=== PATIENT | female | born 1990 | race American Indian/Alaskan Native ===

== ENCOUNTER 2018-04-25 23:07 | Emergency (ER) | payer MEDICAID ==
[2018-04-25 23:12] VITALS: O2SAT 98
--- NOTE | 2018-04-25 23:25 | C.PDOC ---
History Of Present Illness 27 year old female who reports she is 18 weeks complains of pain to her right side of abdomen and buttocks after she fell down 5 steps. Patient states she walking down concrete steps that were wet and fell. She was able to get up but has pain to her tailbone and buttocks after falling. She also reports feeling pain to her right groin and abdomen after the fall. She came straight to ED for evaluation. (Leona Solitario) - HPI History Per: Patient History/Exam Limitations: no limitations Onset/Duration Of Symptoms: Hrs Location Of Injury: Right: Abdomen, Buttock (pian radiates to tailbone) - Fall Fall:Prior To Injury: Slipped - HPI Time Seen by Provider: 04/25/18 23:14 Chief Complaint (Nursing): Trauma Past Medical History Reviewed: Historical Data, Nursing Documentation, Vital Signs Other Surgeries: ectopic Family History: States: No Known Family Hx - Social History Hx Tobacco Use: No Hx Alcohol Use: No Hx Substance Use: No - Immunization History Hx Tetanus Toxoid Vaccination: No Hx Influenza Vaccination: No Hx Pneumococcal Vaccination: No Vital Signs: Last Vital Signs Temp 98.6 F 04/26/18 02:37 Pulse 90 04/26/18 02:37 Resp 20 04/26/18 02:37 BP 122/72 04/26/18 02:37 Pulse Ox 98 04/26/18 04:58 Review Of Systems Except As Marked, All Systems Reviewed And Found Negative. Gastrointestinal: Positive for: Abdominal Pain, Other (right groin pain) Musculoskeletal: Positive for: Other (tailbone pain) Neurological: Negative for: Weakness, Numbness, Incoordination Physical Exam - Physical Exam Appears: Well, Non-toxic, No Acute Distress Skin: Warm, Dry, No Rash Head: Atraumatic, Normacephalic Eye(s): bilateral: Normal Inspection Oral Mucosa: Moist Neck: Normal ROM Chest: Symmetrical Cardiovascular: Rhythm Regular, No Murmur Respiratory: Normal Breath Sounds, No Rales, No Rhonchi, No Wheezing Gastrointestinal/Abdominal: Bowel Sounds, Soft, Tenderness (mild subrapubic tenderness), No Guarding, Other Back: Other (tenderness to sacrum and coccyx, no swelling or ecchymosis) Extremity: Bilateral: Atraumatic, Normal Color And Temperature, Normal ROM Neurological/Psych: Oriented x3, Normal Speech Gait: Steady ED Course And Treatment O2 Sat by Pulse Oximetry: 98 (RA) Pulse Ox Interpretation: Normal - CT Scan/US US Other Rad Studies (CT/US): Read By Radiologist, Radiology Report Reviewed CT/US Interpretation: Name: SHARON SOLARES Age: 27Years F Date: 04/25/2018. Requesting Physician: AltafLeona : 1990. [employer] Procedure Ordered As Accession Number of. Images. US LTD ONE OR MORE. FETUSES. US OB . LIMITED. [id number]. J. 62. Provided Clinical History: patient with fall and injury, now has bradley. CONFIDENTIALITY STATEMENT. This report is intended only for the use of the referring physician, and only in accordance with law, If you received this in error, call [phone]. Page 1 of 1. EXAM: US Uterus, Limited. CLINICAL HISTORY: 27 years old, female; Pain and injury or trauma; Fall; Initial encounter; Blunt trauma; Lower;. complicated by abdominal or pelvic pain; Second trimester; Gestational age or lmp: 12/12/2017; Injury date : 04/25/2018; ; Additional info: patient with fall and injury, . now has bradley. TECHNIQUE: Real-time ultrasound of the maternal uterus (limited) with image documentation. COMPARISON: No relevant prior studies available. FINDINGS: Fetus: An intrauterine is present corresponding to a gestational age of 19 weeks and 5. days. Position: Breech presentation. Heart rate: heart rate measures 150 bpm. Placenta: Hypoechoic lesion within the placenta measuring 3.4 x 1.3 cm. The placenta is oriented. anteriorly. IMPRESSION: No acute findings. Thank you for allowing us to participate in the care of your patient. Dictated and Authenticated by: Estrada Howard MD. 04/26/2018 2:43 AM Eastern Time ([place] & [place]) Medical Decision Making Medical Decision Making: Impression: patient with complaints of pain to buttocks and abdomen after fall Patient has tenderness to sacral and coccyx area, and discuss xray imaging, however the patient does not want xray because of status. I explained without xray cannot exclude any fracture. The patient understands and still refuses xray. She just wants to make sure baby is ok. Ultrasound will be ordered. Plan: * Ultrasound * Tylenol * Ice pack Progress: Ultrasound reviewed with no abnormal findings. Patient remained well and felt comfortable going home. She asked for work note which was provided. Recommend tylenol for any pain, can apply ice to area. Advise return to ER if pain worsens , develops any bleeding or incontinence. (Leona Solitario) Disposition Counseled Patient/Family Regarding: Diagnosis, Need For Followup - Disposition Disposition Time: 02:08 - POA Present On Arrival: Falls Or Trauma - Disposition [facility] Disposition: HOME/ ROUTINE Condition: STABLE Additional Instructions: Take Tylenol for any pain you may have Apply ice to area and use soft cushion when sitting Follow up with your doctor Instructions: Contusion (DC) Forms: [facility] (Kosovan), Work Excuse - Clinical Impression Clinical Impression: Contusion of multiple sites of buttock, Patient currently , Fall down steps Critical Care Time - 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 - Scribe Statement The provider has reviewed the documentation as recorded by the Scribe (Johana Moreno) - Scribe Statement All medical record entries made by the Scribe were at my direction and personally dictated by me. I have reviewed the chart and agree that the record accurately reflects my personal performance of the history, physical exam, medical decision making, and the department course for this patient. I have also personally directed, reviewed, and agree with the discharge instructions and disposition. (Leona Solitario)
[2018-04-26 00:17] LABS: HCG,QUALITATIVE URINE POSITIVE (NEGATIVE)
[2018-04-26 00:19] LABS: SQUAMOUS EPITHIAL 13 /hpf (0-5); URINE BACTERIA RARE (<OCC); URINE BILIRUBIN NEGATIVE (NEGATIVE); URINE BLOOD NEGATIVE (NEGATIVE); URINE CLARITY Hazy (Clear); URINE COLOR Yellow (YELLOW); URINE GLUCOSE (UA) NORMAL (Normal); URINE LEUKOCYTE ESTERASE 2+ Leu/uL (Negative); URINE PROTEIN NEGATIVE (NEGATIVE)
[2018-04-26 02:39] VITALS: BP 122/72; PULSE 90; RESP 20; TEMP 98.6
--- NOTE | 2018-04-26 08:45 | US ---
Date of service: 04/26/2018 PROCEDURE: Obstetrical ultrasound examination HISTORY: patient with fall and injury, now has bradley COMPARISON: Not available TECHNIQUE: Obstetrical ultrasound examination was performed transabdominally. FINDINGS: There is a single live intrauterine gestation in breech presentation. The heart rate is 150 beats per minute. A normal quantity of amniotic fluid is visualized. An anterior fundal placenta is identified. There is no evidence of placenta previa. A small placental Hook is incidentally noted measuring 1.3 x 2.3 x 3.3 cm. This is of no probable clinical significance. The cervix is closed and measures 6.2 cm in length. biometry yields a gestational age of 19 weeks 5 days. The GAURAV by ultrasound is 09/15/2018. The EFW is 316.45 g. Limited review of anatomy demonstrates a 4 chamber heart. There is fluid distending the stomach and urinary bladder. There is no evidence of hydronephrosis. A three-vessel umbilical cord is identified. The anterior abdominal wall is intact. Four extremities are visualized. No gross abnormality of the spine is demonstrated. Please note that this does not constitute a full anatomic evaluation IMPRESSION: Single live intrauterine gestation of approximately 19 weeks 5 days. heart rate 150 beats per minute. Incidental small placental Hook. No placenta previa. Breech presentation. Cervix long and closed. No gross anatomic abnormality. The preliminary findings for this examination were reported by [employer] at 2:43 a.m. on 04/26/2018. There is concurrence of this report with the preliminary findings.
== END 2018-04-26 02:37 | disposition home or self-care (01) ==
LOC: C.ER 23:07
DX: S30.1XXA Contusion of abdominal wall, initial encounter (principal); S30.0XXA Contusion of lower back and pelvis, initial encounter; W10.9XXA Fall (on) (from) unspecified stairs and steps, initial encounter